=== PATIENT | female | born 1945 | race Caucasian/White ===

== ENCOUNTER 2022-12-31 12:48 | Outpatient (CLI) | payer MEDICARE, BC | END 2022-12-31 23:59 | disposition home or self-care (01) | LOC: RAD 12:48 | PROVIDERS: ATTEND Family Medicine | DX: M19.011 Primary osteoarthritis, right shoulder (principal); M24.811 Other specific joint derangements of right shoulder, not elsewhere classified; M25.511 Pain in right shoulder; Z91.81 History of falling; Z74.09 Other reduced mobility | CPT/HCPCS: 73200 ==

== ENCOUNTER 2025-06-19 10:27 | Emergency (ER) | payer BC, MEDICARE ==
[~2025-06-19] VITALS: Ht 160 cm; Wt 83.5 kg
[2025-06-19 10:35] VITALS: BP 177/81; PULSE 78; TEMP 97.4; O2SAT 95
--- NOTE | 2025-06-19 12:27 | RADIOLOGY REPORT ---
DI SHOULDER, COMPLETE (MIN 2 VWS) INDICATION: shoulder pain TECHNICAL DATA: 2 views were obtained of the left shoulder. COMPARISON: CT UPPER EXTREM(SHOULDER/ARM) on DOS: 12/31/22 FINDINGS: Post surgical changes of the AC joint with anchors in the humeral head. The glenohumeral joint is normally maintained. The humeral head is not high riding. Adjacent soft tissues are within normal limits. Degenerative changes are noted involving the visualized spine. IMPRESSION: Post surgical changes of the AC joint with anchors in the humeral head. No acute fracture or dislocation of the left shoulder.
[2025-06-19] MEDS ORDERED: METH4TAB81 PO (13:10)
--- NOTE | 2025-06-19 13:12 | Physician Documentation ---
History of Present Illness ~ Chief Complaint: Shoulder pain Stated Complaint: SHOULDER PAIN Time Seen by MD: 11:55 Source: patient Mode of Arrival: POV Exam Limitations: no limitations HPI 79-year-old right-handed female with chief complaint left anterior lateral shoulder pain that started a week ago. 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 She denies any activity that she did that resulted in immediate pain or any injury that she is aware of. She does have a history of several surgeries on her left shoulder from prior injuries. Pre arrival treatment with [place] which she takes at baseline for chronic pain has not been helping with this pain. Pain has been keeping her awake at night. Pain also makes it to where she is unable to lift her arm. Medication Reconciliation Allergies: Coded Allergies: iodine (Verified Allergy, Unknown, rash, 06/19/25) Past Medical History Past Medical History: No Pertinent History Past Surgical History: noncontributory Alcohol Use: None Drug Use: none Lives In: Home Review of Systems All Other Systems at this time: Reviewed and Negative Physical Exam Vital Signs: Temperature: 97.4, Source: Temporal, Heart Rate: 78, Respiratory Rate: 18, BP: 177/81, Pulse Oximetry: 95, Weight: 83.500 Oxygen Flow Rate: 0 Physical Exam General Appearance: Alert, WD/WN. NAD. HEENT: NCAT, PERRL, EOMI. Neck: Supple, trachea midline. Cardiovascular: RRR. No m/r/g. RADIAL pulses 2+ Lungs: CTAB. Breathing unlabored Extremities: Tenderness over anterior lateral left deltoid area, no tenderness over the AC joint, normal inspection. Patient is unable to lift her left arm due to pain at her left shoulder joint. Skin: Warm/dry, normal color Neurological: Alert and oriented x4, normal gait. Psychiatric: Affect congruent with mood. Progress Progress Note Patient: LIN CHAVES Medical Record: [id number] [facility] : 1945, Age: 79 Sex: Female Location: ER Patient Status: REG ER Service Date/Time: 06/19/251157 Ordering Physician: KATHRYN SANTAMARIA MD Exam: SHOULDER, COMPLETE (MIN 2 VWS) DI SHOULDER, COMPLETE (MIN 2 VWS) INDICATION: shoulder pain TECHNICAL DATA: 2 views were obtained of the left shoulder. COMPARISON: CT UPPER EXTREM(SHOULDER/ARM) on DOS: 12/31/22 FINDINGS: Post surgical changes of the AC joint with anchors in the humeral head. The glenohumeral joint is normally maintained. The humeral head is not high riding. Adjacent soft tissues are within normal limits. Degenerative changes are noted involving the visualized spine. IMPRESSION: Post surgical changes of the AC joint with anchors in the humeral head. No acute fracture or dislocation of the left shoulder. Results/Orders Results/Orders Completed Orders - ELSY GARCIA Hydrocodone/Apap 10/325 ([place] 10/325mg (06/19/25 13:00) Vital Signs 06/19/25 10:35 Temp 97.4 Pulse 78 Resp 18 B/P (MAP) 177/81 Pulse Ox 95 O2 Flow Rate 0 Medical Decision Making Differential Dx:Considerations: Include: AC separation, Adhesive capsulitis, arthritis, Bicipital tendonitis, Calcific tendonitis, Cervical disc disease, Contusion, Dislocation, Fracture: Humerus, Fracture: Scapula, Fracture: Clavicle, Gallbladder Disease, Hematoma, Impingement syndrome, Myocardial infarction, Neurovascular Injury, Rotator cuff injury, SC dislocation, Sprain, Subacromial bursitis Departure Time of Disposition: 13:10 Disposition: 01 HOME / SELF CARE / HOMELESS Impression: Primary Impression: Tendinitis of shoulder Qualified Codes: M75.82 - Other shoulder lesions, left shoulder Condition: Stable Discharge Instructions: Shoulder Pain, [id number] Additional Instructions: MEDROL DOSE ALISIA SENT TO PHARMACY F/U WITH PCP FOR REFERRAL TO PHYSICAL THERAPY YOU NEED TO GRADUALLY START MOVING YOUR ARM TO PREVENT FROZEN SHOULDER Patient: LIN CHAVES Medical Record: [id number] [facility] : 1945, Age: 79 Sex: Female Location: ER Patient Status: REG ER Service Date/Time: 06/19/251157 Ordering Physician: KATHRYN SANTAMARIA MD Exam: SHOULDER, COMPLETE (MIN 2 VWS) DI SHOULDER, COMPLETE (MIN 2 VWS) INDICATION: shoulder pain TECHNICAL DATA: 2 views were obtained of the left shoulder. COMPARISON: CT UPPER EXTREM(SHOULDER/ARM) on DOS: 12/31/22 FINDINGS: Post surgical changes of the AC joint with anchors in the humeral head. The glenohumeral joint is normally maintained. The humeral head is not high riding. Adjacent soft tissues are within normal limits. Degenerative changes are noted involving the visualized spine. IMPRESSION: Post surgical changes of the AC joint with anchors in the humeral head. No acute fracture or dislocation of the left shoulder. Referrals: NO PRIMARY CARE PROVIDER (PCP) Prescriptions Methylprednisolone (Medrol Dosepak) 4 Mg Tab.ds.pk 0 PO UD, #21 TAB 0 Refills take 6 Pills Day 1, 5 Pills Day 2, 4 Pills Day 3, 3 Pills Day 4, 2 Pills Day 5 and 1 pill Day 6 Prov: ELSY GARCIA 06/19/25 Education Educated: Patient Educated regarding: diagnosis, treatment, need for follow up Signature Scribe Signature: X Attestation: ELSY MORTENSEN Jun 19, 2025 13:12
[2025-06-19 13:15] VITALS: RESP 16
[2025-06-19] MEDS: HYDROcodone/acetaminophen 10/325mg tab PO ONE (13:15)
== END 2025-06-19 13:34 | disposition home or self-care (01) ==
LOC: ER 10:28
DX: M77.8 Other enthesopathies, not elsewhere classified (principal); G89.29 Other chronic pain; Z88.8 Allergy status to other drugs, medicaments and biological substances
CPT/HCPCS: 73030; 99283